=== PATIENT | male | born 1980 | race Caucasian/White ===

== ENCOUNTER 2020-10-12 05:11 | Emergency (ER) | payer BC, OTHER ==
[2020-10-12] MEDS ORDERED: HYDROcodone/Acetaminophen 5/325 mg Tablet ONE (06:01)
== END 2020-10-12 06:12 | disposition home or self-care (01) ==
LOC: NAV ERS 05:11
DX: I10 Essential (primary) hypertension (principal); K08.89 Other specified disorders of teeth and supporting structures; F32.9 Major depressive disorder, single episode, unspecified
CPT/HCPCS: 99283